=== PATIENT | female | born 1935 | race Caucasian/White ===

== ENCOUNTER 2020-04-20 18:25 | Inpatient (IN) ==
[2020-04-20 18:55] LABS: POC Blood Urea Nitrogen 32 mg/dl (8-23); POC CO2 22 mmol/L (22-30); POC Calcium, Ionized 1.21 mmol/L (1.16-1.32); POC Chloride 101 mmol/L (96-108); POC Creatinine 0.6 mg/dl (0.6-1.1); POC Glucose, Random 107 mg/dL (70-105); POC Sodium 134 mmol/L (133-145)
[2020-04-20] MEDS ORDERED: PANTOPRAZOLE 40 MG VIAL IV ONE (18:55)
[2020-04-20] MEDS ORDERED: 0.9 % SODIUM CHLORIDE 1,000 ML IV ONE (18:55)
[2020-04-20] MEDS ORDERED: 0.9 % SODIUM CHLORIDE 250 ML IV SCH ×2 (19:15→22:01)
--- NOTE | 2020-04-20 19:21 | Emergency Department Note ---
HPI General Chief complaint: Bleeding Other Stated complaint: Black stools Time Seen by Provider: 04/20/20 18:28 Mode of arrival: wheelchair Limitations: no limitations History of Present Illness HPI Narrative: Narrative: Patient is an 84-year-old female that comes into the emergency department today with complaint of melena that began 2 days ago. Patient reports that she has had black stools on Saturday, on Saturday she felt tired and had another black stool. She reports today she had 2 black stools. She was started on Plavix after a CVA February 10, 2020. Patient reports that she was instructed to monitor for black stools as well as bruising. She has noticed some occasional bruises on her lower extremities, but the black stools and weakness and feeling tired is why she decided to come to the emergency department today. She reports that she called her primary care provider, and was instructed to come to the emergency department. She has not had any chest pain, shortness of breath, or difficulty breathing. She has not had any cough. She denies any fevers or chills. She has not had any diarrhea or constipation. Related Data Home Medications Medication Instructions Recorded Confirmed cholecalciferol (vitamin D3) 10 1,200 unit PO QDAY cap 03/16/15 03/16/20 mcg (400 unit) capsule aspirin 81 mg PO QDAY 04/20/20 04/20/20 Previous Rx's Medication Instructions Recorded meloxicam 15 mg tablet 15 mg PO QDAY PRN #90 tab 10/21/19 telmisartan 40 mg tablet See Rx Instructions .ROUTE 12/31/19 .COMPLEX #30 unknown measurement unit code: tablet atorvastatin 20 mg tablet 20 mg PO QDAY #30 tab 02/17/20 clopidogrel 75 mg tablet 150 mg PO QDAY 21 Days #42 tab 02/18/20 Allergies Allergy/AdvReac Type Severity Reaction Status Date / Time cephalexin Allergy Severe wheezing Verified 04/20/20 21:13 and throat swelling on third day alendronate sodium Allergy Unknown Unknown Verified 04/20/20 21:13 [From Fosamax] cefdinir [From Omnicef] Allergy Unknown Diarrhea Verified 04/20/20 21:13 ciprofloxacin [From Cipro] Allergy Unknown Headache Verified 04/20/20 21:13 hydroxyzine [From Atarax] Allergy Unknown Unknown Verified 04/20/20 21:13 Raloxifene [From Evista] Allergy Unknown Unknown Verified 04/20/20 21:13 risedronate sodium Allergy Unknown Gastrointestinal Verified 04/20/20 21:13 [From Actonel] Upset sulfamethoxazole Allergy Unknown Unknown Verified 04/20/20 21:13 [From Septra] tolterodine [From Detrol] Allergy Unknown Headache Verified 04/20/20 21:13 tramadol [From Ultram] Allergy Unknown Dizziness Verified 04/20/20 21:13 trimethoprim [From Septra] Allergy Unknown Unknown Verified 04/20/20 21:13 hydrocodone-acetaminophen Allergy Unknown Diarrhea Uncoded 03/16/20 10:03 Niacin Allergy Unknown Flushing Uncoded 03/16/20 10:03 Review of Systems ROS ROS Narrative: Narrative: All systems ED: reviewed and negative except as stated. 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 current use of immunosuppressive drug (Chronic) Influenza (Acute) Back Pain (Chronic) History of colonoscopy (Chronic) History of esophagogastroduodenoscopy (Chronic 09/25/12) History of carpal tunnel release (Chronic) Status post arthroscopic surgery of right knee (Chronic) Status post arthroscopic surgery of left knee (Chronic) History of oophorectomy (Chronic) Vertigo (Chronic) History of tobacco use (Chronic) Seborrheic keratosis (Chronic) Systemic lupus erythematosus (Acute) Urinary incontinence (Chronic) Hypertension, essential (Chronic) Hyperlipidemia (Chronic) Hormone replacement therapy (Chronic) Osteoporosis (Chronic) Hematuria, microscopic (Chronic) Hearing loss (Chronic) Headache (Chronic) Gastritis (Chronic) Degenerative joint disease (Acute) Cervical compression fracture (Chronic) Colon polyps (Chronic) Drug use (Chronic 11/03/13) Arteritis (Chronic) Anemia (Chronic) Medical History (Updated 04/20/20 @ 20:57 by DESIREE Spear) Anemia (Chronic) Past H/O mild anemia with lab workup 2009, probably related to Plaquenil. No history for bleeding and she does not donate blood. Arteritis (Chronic) 03/2011 extensive evaluation for questionable temporal arteritis including biopsy through Dr. Weems. Also see hearing loss and headache below. Back Pain (Chronic) Cervical compression fracture (Chronic) 1995*Past H/O, 1994, of T3 compression fracture. Chest pain (Acute) Colon polyps (Chronic) 09/09/12 Colonoscopy--Dr. Elena--rectal hyperplastic polyp. 5-year sequence. 11/06/07 Colonoscopy--rectal hyperplastic polyp. Degenerative joint disease (Acute) Drug use (Chronic 11/03/13) chronic medication use *Patient on plaquenil Encounter for long-term (current) use of NSAIDs (Acute) Gastritis (Chronic) 09/25/12 EGD--Dr. Elena-- stomach biopsy X2 showing features of hyperplastic polyps, negative for helicobacter-type organisms; chronic gastritis. Headache (Chronic) H/O tension/migraine-like headaches. Head MRI 03/14/11 revealing some atrophy and possibly some inflammation in the left sphenoid. Rheumatology review 02/[address] Hatch in [place] with concerns of temporal arteritis. 03/2011 extensive evaluation for questionable temporal arteritis including biopsy through Dr. Weems. Stable on prn analgesics. Hearing loss (Chronic) 03/2011 extensive evaluation for questionable temporal arteritis including biopsy through Dr. Weems. Review with Dr. Weems 11/2011 for hearing loss. 03/2012--ENT review, Dr. Licona in [place] for dizziness and probable true vertigo. Carotid doppler through Dr. Licona revealed some plaquing but no obstruction; non-pathologic cervical nodes. New hearing aids 04/2012 Hematuria, microscopic (Chronic) H/O microhematuria, urinary incontinence, mild pelvic prolapse, also bilate ral oophorectomy for cysts 1955. CT evaluation 2008. Review with Shaquille Yang, November 2010--felt not to be a surgical candidate. History of tobacco use (Chronic) Distant ex-smoker, stopping 1966, not requiring routine screening. Hormone replacement therapy (Chronic) 1955 Bilateral oophorectomy for cysts. On oral and topical estrogen and is well aware of potential side effects. Hyperlipidemia (Chronic) H/O hyperlipidemia with multiple medicine intolerances, including Niacin and Zetia--treated primarly with diet. Hypertension, essential (Chronic) H/O mild hypertension, stable on Labetalol. Negative cardiovascular history. Influenza (Acute) [facility] current use of immunosuppressive drug (Chronic) Osteoporosis (Chronic) H/O osteoporosis/osteopenia with stable Vitamin D level 10/26/2009 of 40.7 and primary intervention being her estrogen. Bone Density 11/07/2010 with Spine T- score -2.7; Hip T-score -1.5. Seborrheic keratosis (Chronic) Derm follow up through D[facility]. Systemic lupus erythematosus (Acute) Urinary incontinence (Chronic) H/O urinary incontinence, mild pelvic prolapse and past H/O microhematuria, also bilateral oophorectomy for cysts 1955. CT evaluation 2008. Review with Deshaun Yangkane, November 2010--felt not to be a surgical candidate. Vertigo (Chronic) 03/2012--ENT review, Dr. Licona in [place] for dizziness and probable true vertigo. Carotid doppler through Dr. Licona revealed some plaquing but no obstruction; non-pathologic cervical nodes. Referred through Dr. Forbes to [facility] for vertigo physical therapy treatments. Surgical History History of carpal tunnel release (Chronic) 1995 Left carpal tunnel release. History of colonoscopy (Chronic) 09/09/12 Colonoscopy--Dr. Elena--rectal hyperplastic polyp. 5-year sequence. 11/06/07 Colonoscopy--rectal hyperplastic polyp. History of esophagogastroduodenoscopy (Chronic 09/25/12) 09/25/12 EGD--Dr. Elena-- stomach biopsy X2 showing features of hyperplastic polyps, negative for helicobacter-type organisms; chronic gastritis. History of oophorectomy (Chronic) 1955 Bilateral oophorectomy for cysts. On oral and topical estrogen and is well aware of potential side effects. Status post arthroscopic surgery of left knee (Chronic) 2010, 2004, 1979's* 06/2011 Left knee scope; 2004 left knee scope; left knee scope. Status post arthroscopic surgery of right knee (Chronic) 2001 Right knee arthroscopy--Dr. Mora. Family History Sister Idiopathic pulmonary fibrosis non smoker Mother Malignant neoplasm of lung smoker Social History Smoking Status: Former smoker Alcohol Intake Frequency: does not drink Substance Use: does not use Exam Narrative Narrative: Narrative: General Limitations: no limitations General appearance: alert and in no apparent distress Eye Eye: Present normal appearance, PERRL and EOMI; Absent scleral icterus and conjunctival injection ENT ENT: Present normal oropharynx and mucous membranes dry Neck Neck: Present normal inspection and full ROM; Absent tenderness and lymphadenopathy Chest Chest: Present symmetric chest wall rise Respiratory Respiratory: Present normal lung sounds bilaterally; Absent respiratory distress, wheezes, stridor, accessory muscle use and prolonged expiratory phase Cardiovascular Cardiovascular: Present regular rate and normal rhythm; Absent systolic murmur and diastolic murmur Adbominal Abdominal: Present soft; Absent distention, tenderness, guarding, rebound, rigidity, organomegaly and mass Rectal Rectal: Present normal inspection, normal rectal tone, heme (+) stool and black stool; Absent fecal impaction, mass and tenderness Extremities Extremities: Present normal inspection, full ROM and other (Several small areas of ecchymosis on the posterior side of right and left leg measuring 1 cm to 2 cm in diameter.) Back Back: Present normal inspection and full ROM; Absent tenderness, CVA tenderness (R) and CVA tenderness (L) Neurological Neurological: Present alert, oriented X3, CN II-XII intact and normal gait Psychiatric Psychiatric: Present normal affect and normal mood Skin Skin: Present other (Skin is pale with pink undertones. There are several small areas of light purple ecchymosis on posterior side of right and left leg that measure 1 cm to 2 cm in diameter.) Course Reevaluation(s) Reevaluation #1: 1914 -spoke with Dr. Sky Torres, and reported to him that the guaiac stool is positive and [id number] hematocrit is 21.0. Have ordered 80 mg of Protonix IV, 1 L normal saline, 2 units packed red blood cells with a type and cross. Patient is stable vital signs at this time. Dr. Torres will consult with the patient if admitted, but will need hospitalist to admit. Remainder of labs currently pending at this time. We will plan on calling hospitalist once remainder of labs are resulted. 2052 - Spoke with Dr. Farooq at 2052 in regards to the patient. Patient has a hemoglobin of 7.1, and hematocrit of 22.0. Positive occult stool test. Patient has stable vital signs at this time and received 1 L normal saline, and 80 mg of Protonix IV. Dr. Farooq will accept the patient for hospital admission to [facility] PCU observation. Vital Signs Vital signs: Vital Signs Temperature 97.9 F 04/20/20 18:27 Pulse Rate 88 04/20/20 18:27 Respiratory Rate 14 04/20/20 18:27 Blood Pressure 115/69 04/20/20 18:27 Pulse Oximetry (%) 99 04/20/20 18:27 Temperature 97.9 F 04/20/20 18:27 Pulse Rate 81 04/20/20 21:01 Respiratory Rate 21 04/20/20 21:01 Blood Pressure 123/60 04/20/20 21:01 Pulse Oximetry (%) 100 04/20/20 21:01 [facility] MDM Narrative Medical decision making narrative: Narrative: GI bleed with anemia. Hemoglobin 7.1 and hematocrit 22.0. Patient received 1 L normal saline here in the emergency department. She has a stable blood pressure and currently 121/60 with pulse of 80. Oxygen saturation 100% on room air. Currently awaiting the packed red blood cells for transfusion and will transfuse 1 unit at this time in the emergency department if the packed red blood cells arrives before patient being admitted. Spoke with Dr. Sky Torres who will consult with the patient for scope with colonoscopy and if needed EGD. I did talk with Dr. Farooq who agreed to admit the patient to [facility] today. Patient doing well at this time and did for the GI bleed. Lab Data Result diagrams: 04/20/20 18:43 04/20/20 18:43 Labs: Lab Results 04/20/20 04/20/20 04/20/20 Range/Units 18:43 18:43 18:43 WBC 10.4 (4.50-11.00) K/mcL RBC 2.28 L (3.59-5.38) M/mcL Hgb 7.1 L (11.2-15.7) g/dL Hct 22.0 L (34.1-44.9) % POC Hct 21.0 L* (36.0-48.0) % MCV 96.5 (80.0-100.0) fL MCH 31.1 (26.0-34.0) pg MCHC 32.3 (31.0-36.0) g/dL RDW 14.0 (11.5-14.5) % Plt Count 252 (140-440) K/mcL MPV 9.0 (7.4-10.4) fL Gran % 71.0 (38.0-78.0) % Lymph % (Auto) 19.8 (15.5-49.0) % Scott % (Auto) 7.6 (1.0-12.0) % Eos % (Auto) 1.2 (0.0-7.0) % Baso % (Auto) 0.4 (0.0-2.0) % Gran # 7.40 (1.80-8.00) K/mcL Lymph # (Auto) 2.07 (1.50-4.80) K/mcL Scott # (Auto) 0.79 (0.10-0.90) K/mcL Eos # (Auto) 0.13 (0.00-0.70) K/mcL Baso # (Auto) 0.04 (0.00-0.30) K/mcL POC PT (11.9-14.5) sec PT (11.9-14.5) sec POC INR (0.9-1.2) INR (0.9-1.1) POC Sodium 134 (133-145) mmol/L Sodium 133 (133-145) mmol/L POC Potassium 4.0 (3.3-5.1) mmol/L Potassium 4.0 (3.3-5.1) mmol/L POC Chloride 101 (96-108) mmol/L Chloride 99 (96-108) mmol/L Carbon Dioxide 22 (22-30) mmol/L POC Total CO2 22 (22-30) mmol/L Anion Gap 12.0 (8-16) POC BUN 32 H (8-23) mg/dl BUN 35 H (8-23) mg/dl Creatinine 0.6 (0.6-1.1) mg/dl POC Creatinine 0.6 (0.6-1.1) mg/dl GFR Calculation 83 Glucose 109 H (70-105) mg/dL POC Glucose 107 H (70-105) mg/dL Calcium 9.1 (8.6-10.4) mg/dl POC WB Ioniz Calcium 1.21 (1.16-1.32) mmol/L Total Bilirubin 0.3 (0.0-1.0) mg/dL AST 19 (0-37) U/l ALT 15 (0-40) U/l Alkaline Phosphatase 73 (39-117) U/L Total Protein 5.9 (5.9-8.4) gm/dL Albumin 3.8 (3.2-5.2) gm/dL Globulin 2.1 L (2.2-3.7) gm/dL Albumin/Globulin Ratio 1.8 (1.0-2.3) 04/20/20 04/20/20 Range/Units 18:43 19:28 WBC (4.50-11.00) K/mcL RBC (3.59-5.38) M/mcL Hgb (11.2-15.7) g/dL Hct (34.1-44.9) % POC Hct (36.0-48.0) % MCV (80.0-100.0) fL MCH (26.0-34.0) pg MCHC (31.0-36.0) g/dL RDW (11.5-14.5) % Plt Count (140-440) K/mcL MPV (7.4-10.4) fL Gran % (38.0-78.0) % Lymph % (Auto) (15.5-49.0) % Scott % (Auto) (1.0-12.0) % Eos % (Auto) (0.0-7.0) % Baso % (Auto) (0.0-2.0) % Gran # (1.80-8.00) K/mcL Lymph # (Auto) (1.50-4.80) K/mcL Scott # (Auto) (0.10-0.90) K/mcL Eos # (Auto) (0.00-0.70) K/mcL Baso # (Auto) (0.00-0.30) K/mcL POC PT 12.7 (11.9-14.5) sec PT 14.4 (11.9-14.5) sec POC INR 1.1 (0.9-1.2) INR 1.1 (0.9-1.1) POC Sodium (133-145) mmol/L Sodium (133-145) mmol/L POC Potassium (3.3-5.1) mmol/L Potassium (3.3-5.1) mmol/L POC Chloride (96-108) mmol/L Chloride (96-108) mmol/L Carbon Dioxide (22-30) mmol/L POC Total CO2 (22-30) mmol/L Anion Gap (8-16) POC BUN (8-23) mg/dl BUN (8-23) mg/dl Creatinine (0.6-1.1) mg/dl POC Creatinine (0.6-1.1) mg/dl GFR Calculation Glucose (70-105) mg/dL POC Glucose (70-105) mg/dL Calcium (8.6-10.4) mg/dl POC WB Ioniz Calcium (1.16-1.32) mmol/L Total Bilirubin (0.0-1.0) mg/dL AST (0-37) U/l ALT (0-40) U/l Alkaline Phosphatase (39-117) U/L Total Protein (5.9-8.4) gm/dL Albumin (3.2-5.2) gm/dL Globulin (2.2-3.7) gm/dL Albumin/Globulin Ratio (1.0-2.3) Discharge Plan Patient/Caregiver Discharge Instructions Pt seen by CRYPTANALYST/PA only: No Clinical Impression: Acute GI bleeding Patient Disposition: Xfer As Outpt/Obs ([facility] Condition: Fair Discharge Date/Time: 04/20/20 21:49
[2020-04-20 19:42] LABS: Basophils # (Auto) 0.04 K/mcL (0.00-0.30); Basophils % (Auto) 0.4 % (0.0-2.0); Eosinophils # (Auto) 0.13 K/mcL (0.00-0.70); Eosinophils % (Auto) 1.2 % (0.0-7.0); Hemoglobin 7.1 g/dL (11.2-15.7); Lymphocytes # (Auto) 2.07 K/mcL (1.50-4.80); Lymphocytes % (Auto) 19.8 % (15.5-49.0); Mean Cell Volume 96.5 fL (80.0-100.0); Mean Corpuscular HGB Conc 32.3 g/dL (31.0-36.0); Monocytes # (Auto) 0.79 K/mcL (0.10-0.90); Monocytes % (Auto) 7.6 % (1.0-12.0); Platelet Count 252 K/mcL (140-440); RBC 2.28 M/mcL (3.59-5.38); WBC 10.4 K/mcL (4.50-11.00)
[2020-04-20 19:57] LABS: INR 1.1 (0.9-1.1); Prothrombin Time 14.4 sec (11.9-14.5)
[2020-04-20 20:00] LABS: ALT/SGPT 15 U/l (0-40); AST/SGOT 19 U/l (0-37); Albumin 3.8 gm/dL (3.2-5.2); Albumin/Globulin Ratio 1.8 (1.0-2.3); Alkaline Phosphatase 73 U/L (39-117); Bilirubin,Total 0.3 mg/dL (0.0-1.0); Blood Urea Nitrogen 35 mg/dl (8-23); Calcium 9.1 mg/dl (8.6-10.4); Carbon Dioxide 22 mmol/L (22-30); Chloride 99 mmol/L (96-108); Globulin 2.1 gm/dL (2.2-3.7); Glomerular Filtration Rate 83; Glucose 109 mg/dL (70-105)
[2020-04-20 20:34] LABS: POC INR 1.1 (0.9-1.2); POC Pro Time 12.7 sec (11.9-14.5)
--- NOTE | 2020-04-20 20:54 | Internal Med History&Physical ---
HPI History of Present Illness Patient information: Note initiated : 04/20/20 at 8:50 pm Service Date, if different from initiated Date: [] Patient: Kinjal Roque a 84 y/o F admitted on for Black stools. Chief Complaint: Melena History of present illness: Ms. Roque is a 84 year old F with a history of hypertension/recent CVA on aspirin Plavix who presents to the ER with 3-day onset of black tarry stools that started on Saturday. Patient has been on aspirin Plavix since February 09 following a CVA. She denies abdominal discomfort/bloody emesis however endorses to daily NSAID intake over the last 3 weeks after recommendations from skilled helper. She denies history of alcoholism. Initial work-up in the ER was consistent with blood loss anemia with hemoglobin 7.1. 2 blood transfusion was ordered after 80 mg of Protonix was administered. Surgery was consulted and requested hospital service to admit the patient for management of GI bleed. At the time of my evaluation patient is accompanied with her daughter Denisse. She is able to answer most of the questions. She has associated lightheadedness but denies chest pain, diaphoresis, palpitation or shortness of breath. She does feel fatigued. She has very minimal left-sided deficits from recent CVA. She lives alone, her daughter lives a mile from her. She denies fever, double vision, thunderclap headache. Review of systems 10 point review system was performed and is negative except for ones cussed above PFSH PFSH All Active Problems (Updated 04/20/20 @ 20:57 by DESIREE Spear) Stroke (Acute) Brain TIA (Acute) Acute GI bleeding (Acute) Encounter for long-term (current) use of NSAIDs (Acute) Actinic keratosis (Acute) Chest pain (Acute) Urinary tract infection (Acute) Vaginal pain (Acute) Situational anxiety (Acute) Encounter for Health Maintenance Examination in Adult (Chronic) senior living current use of immunosuppressive drug (Chronic) Influenza (Acute) Back Pain (Chronic) History of colonoscopy (Chronic) History of esophagogastroduodenoscopy (Chronic 09/25/12) History of carpal tunnel release (Chronic) Status post arthroscopic surgery of right knee (Chronic) Status post arthroscopic surgery of left knee (Chronic) History of oophorectomy (Chronic) Vertigo (Chronic) History of tobacco use (Chronic) Seborrheic keratosis (Chronic) Systemic lupus erythematosus (Acute) Urinary incontinence (Chronic) Hypertension, essential (Chronic) Hyperlipidemia (Chronic) Hormone replacement therapy (Chronic) Osteoporosis (Chronic) Hematuria, microscopic (Chronic) Hearing loss (Chronic) Headache (Chronic) Gastritis (Chronic) Degenerative joint disease (Acute) Cervical compression fracture (Chronic) Colon polyps (Chronic) Drug use (Chronic 11/03/13) Arteritis (Chronic) Anemia (Chronic) Medical History (Updated 04/20/20 @ 20:57 by DESIREE Spear) Anemia (Chronic) Past H/O mild anemia with lab workup 2008, probably related to Plaquenil. No history for bleeding and she does not donate blood. Arteritis (Chronic) 03/2011 extensive evaluation for questionable temporal arteritis including biopsy through Dr. Weems. Also see hearing loss and headache below. Back Pain (Chronic) Cervical compression fracture (Chronic) 1995*Past H/O, 1994, of T3 compression fracture. Chest pain (Acute) Colon polyps (Chronic) 09/09/12 Colonoscopy--Dr. Elena--rectal hyperplastic polyp. 5-year sequence. 11/06/07 Colonoscopy--rectal hyperplastic polyp. Degenerative joint disease (Acute) Drug use (Chronic 11/03/13) chronic medication use *Patient on plaquenil Encounter for long-term (current) use of NSAIDs (Acute) Gastritis (Chronic) 09/25/12 EGD--Dr. Elena-- stomach biopsy X2 showing features of hyperplastic polyps, negative for helicobacter-type organisms; chronic gastritis. Headache (Chronic) H/O tension/migraine-like headaches. Head MRI 03/14/11 revealing some atrophy and possibly some inflammation in the left sphenoid. Rheumatology review 04/01/[address] Hatch in [place] with concerns of temporal arteritis. 03/2011 extensive evaluation for questionable temporal arteritis including biopsy through Dr. Weems. Stable on prn analgesics. Hearing loss (Chronic) 03/2011 extensive evaluation for questionable temporal arteritis including biopsy through Dr. Weems. Review with Dr. Weems 11/2011 for hearing loss. 03/2012--ENT review, Dr. Licona in [place] for dizziness and probable true vertigo. Carotid doppler through Dr. Licona revealed some plaquing but no obstruction; non-pathologic cervical nodes. New hearing aids 04/2012 Hematuria, microscopic (Chronic) H/O microhematuria, urinary incontinence, mild pelvic prolapse, also bilateral oophorectomy for cysts 1955. CT evaluation 2008. Review with Shaquille Yang, November 2010--felt not to be a surgical candidate. History of tobacco use (Chronic) Distant ex-smoker, stopping 1966, not requiring routine screening. Hormone replacement therapy (Chronic) 1955 Bilateral oophorectomy for cysts. On oral and topical estrogen and is well aware of potential side effects. Hyperlipidemia (Chronic) H/O hyperlipidemia with multiple medicine intolerances, including Niacin and Zetia--treated primarly with diet. Hypertension, essential (Chronic) H/O mild hypertension, stable on Labetalol. Negative cardiovascular history. Influenza (Acute) senior living current use of immunosuppressive drug (Chronic) Osteoporosis (Chronic) H/O osteoporosis/osteopenia with stable Vitamin D level 10/26/2009 of 40.7 and primary intervention being her estrogen. Bone Density 11/07/2010 with Spine T-score -2.7; Hip T-score -1.5. Seborrheic keratosis (Chronic) Derm follow up through [facility]. Systemic lupus erythematosus (Acute) Urinary incontinence (Chronic) H/O urinary incontinence, mild pelvic prolapse and past H/O microhematuria, also bilateral oophorectomy for cysts 1955. CT evaluation 2008. Review with Shaquille Yang, November 2010--felt not to be a surgical candidate. Vertigo (Chronic) 03/2012--ENT review, Dr. Licona in [place] for dizziness and probable true vertigo. Carotid doppler through Dr. Licona revealed some plaquing but no obstruction; non-pathologic cervical nodes. Referred through Dr. Forbes to [facility] for vertigo physical therapy treatments. Surgical History History of carpal tunnel release (Chronic) 1995 Left carpal tunnel release. History of colonoscopy (Chronic) 09/09/12 Colonoscopy--Dr. Elena--rectal hyperplastic polyp. 5-year sequence. 11/06/07 Colonoscopy--rectal hyperplastic polyp. History of esophagogastroduodenoscopy (Chronic 09/25/12) 09/25/12 EGD--Dr. Elena-- stomach biopsy X2 showing features of hyperplastic polyps, negative for helicobacter-type organisms; chronic gastritis. History of oophorectomy (Chronic) 1955 Bilateral oophorectomy for cysts. On oral and topical estrogen and is well aware of potential side effects. Status post arthroscopic surgery of left knee (Chronic) 2010, 2004, s* 06/2011 Left knee scope; 2004 left knee scope; left knee scope. Status post arthroscopic surgery of right knee (Chronic) 2001 Right knee arthroscopy--Dr. Mora. 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 other: has 2 daughters- adopted from [facility] smoking status: Former smoker alcohol intake frequency: does not drink substance use type: does not use MEDS/ALLERGIES Home Medications and Allergies Home Medications Medication Instructions Recorded Confirmed Type cholecalciferol (vitamin D3) 10 1,200 unit PO QDAY cap 03/16/15 04/20/20 History mcg (400 unit) capsule meloxicam 15 mg tablet 15 mg PO QDAY PRN #90 tab 10/21/19 04/20/20 Rx telmisartan 40 mg tablet See Rx Instructions .ROUTE 12/31/19 04/20/20 Rx .COMPLEX #30 unknown measurement unit code: tablet atorvastatin 20 mg tablet 20 mg PO QDAY #30 tab 02/17/20 04/20/20 Rx clopidogrel 75 mg tablet 150 mg PO QDAY 21 Days #42 tab 02/18/20 04/20/20 Rx aspirin 81 mg PO QDAY 04/20/20 04/20/20 History Allergies Allergy/AdvReac Type Severity Reaction Status Date / Time cephalexin Allergy Severe wheezing Verified 04/20/20 21:13 and throat swelling on third day alendronate sodium Allergy Unknown Unknown Verified 04/20/20 21:13 [From Fosamax] cefdinir [From Omnicef] Allergy Unknown Diarrhea Verified 04/20/20 21:13 ciprofloxacin [From Cipro] Allergy Unknown Headache Verified 04/20/20 21:13 hydroxyzine [From Atarax] Allergy Unknown Unknown Verified 04/20/20 21:13 Raloxifene [From Evista] Allergy Unknown Unknown Verified 04/20/20 21:13 risedronate sodium Allergy Unknown Gastrointestinal Verified 04/20/20 21:13 [From Actonel] Upset sulfamethoxazole Allergy Unknown Unknown Verified 04/20/20 21:13 [From Septra] tolterodine [From Detrol] Allergy Unknown Headache Verified 04/20/20 21:13 tramadol [From Ultram] Allergy Unknown Dizziness Verified 04/20/20 21:13 trimethoprim [From Septra] Allergy Unknown Unknown Verified 04/20/20 21:13 hydrocodone-acetaminophen Allergy Unknown Diarrhea Uncoded 03/16/20 10:03 Niacin Allergy Unknown Flushing Uncoded 03/16/20 10:03 EXAM Constitutional Vitals: Temp Pulse Resp BP Pulse Ox 97.9 F 82 22 123/61 100 04/20/20 18:27 04/20/20 20:16 04/20/20 20:16 04/20/20 20:16 04/20/20 20:16 Head normocephalic Oral cavity moist No ear nose discharge Eye movement symmetrical, Neck supple no lymphadenopathy S1-S2 regular Nonlabored breathing Nondistended nontender abdomen Lower extremity no cyanosis clubbing or joint swelling Skin pallor noted, no suspicious lesion Psych anxious but alert cooperative Neuro normal higher function DATA Data Completed and Pending Labs: Labs from last 24 hours 04/20/20 04/20/20 04/20/20 19:28 18:43 18:43 WBC RBC Hgb Hct POC Hct MCV MCH MCHC RDW Plt Count MPV Gran % Lymph % (Auto) [place] % (Auto) Eos % (Auto) Baso % (Auto) Gran # Lymph # (Auto) [place] # (Auto) Eos # (Auto) Baso # (Auto) POC PT 12.7 PT 14.4 POC INR 1.1 INR 1.1 POC Sodium Sodium 133 POC Potassium Potassium 4.0 POC Chloride Chloride 99 Carbon Dioxide 22 POC Total CO2 Anion Gap 12.0 POC BUN BUN 35 H Creatinine 0.6 POC Creatinine GFR Calculation 83 Glucose 109 H POC Glucose Calcium 9.1 POC WB Ioniz Calcium Total Bilirubin 0.3 AST 19 ALT 15 Alkaline Phosphatase 73 Total Protein 5.9 Albumin 3.8 Globulin 2.1 L Albumin/Globulin Ratio 1.8 04/20/20 04/20/20 18:43 18:43 WBC 10.4 RBC 2.28 L Hgb 7.1 L Hct 22.0 L POC Hct 21.0 L* MCV 96.5 MCH 31.1 MCHC 32.3 RDW 14.0 Plt Count 252 MPV 9.0 Gran % 71.0 Lymph % (Auto) 19.8 [place] % (Auto) 7.6 Eos % (Auto) 1.2 Baso % (Auto) 0.4 Gran # 7.40 Lymph # (Auto) 2.07 [place] # (Auto) 0.79 Eos # (Auto) 0.13 Baso # (Auto) 0.04 POC PT PT POC INR INR POC Sodium 134 Sodium POC Potassium 4.0 Potassium POC Chloride 101 Chloride Carbon Dioxide POC Total CO2 22 Anion Gap POC BUN 32 H BUN Creatinine POC Creatinine 0.6 GFR Calculation Glucose POC Glucose 107 H Calcium POC WB Ioniz Calcium 1.21 Total Bilirubin AST ALT Alkaline Phosphatase Total Protein Albumin Globulin Albumin/Globulin Ratio A/P Narrative A/P Narrative: * UGI Bleed likely secondary to NSAID gastropathy/dual antiplatelet. Admit PCU obs, surgery consult, start Q4 H&H, 2 U PRBC stat transfusion and as needed transfusions * H/o CVA - Hold plavix/ASA for 48 hours, Continue Statin. * HTN-hold antihypertensives * Prophylaxis SCDs Plan * Observation admission * 4 hourly hemoglobin checks * 2 units PRBC transfusion * Hold aspirin Plavix * Clear liquid diet Time Spent With Patient Time: Total time spent is greater than 50% in coordination of care (as documented) at patient's floor/unit and/or counseling patient: QUALITY Stroke Symptom Onset Unknown: No
[2020-04-20] MEDS ORDERED: BISACODYL 10 MG SUPP.RECT PR PRN (22:01)
[2020-04-20] MEDS ORDERED: POLYETHYLENE GLYCOL 3350 17 GM PACKET PO PRN (22:01)
[2020-04-20] MEDS ORDERED: ACETAMINOPHEN 650 MG/65 ML BOTTLE IV PRN (22:01)
[2020-04-20] MEDS ORDERED: MELATONIN 3 MG TABLET PO PRN (22:01)
[2020-04-20] MEDS ORDERED: ACETAMINOPHEN 325 MG TABLET PO PRN (22:01)
[2020-04-20] MEDS ORDERED: ONDANSETRON 4 MG ODT TABLET SL PRN (22:01)
[2020-04-20] MEDS ORDERED: ONDANSETRON 4 MG/2 ML VIAL IV PRN (22:01)
[2020-04-20] MEDS ORDERED: MAGNESIUM SULFATE 2 GM/50 ML BAG IV PRN (22:01)
[2020-04-20] MEDS ORDERED: POTASSIUM CHLORIDE 20 MEQ PACKET PO PRN (22:01)
[2020-04-20] MEDS: 0.9 % SODIUM CHLORIDE 10 ML SYRINGE IV SCH (23:35)
[2020-04-20] MEDS: DOCUSATE SODIUM 100 MG CAPSULE PO SCH (23:35)
[2020-04-20] MEDS: SENNOSIDES/DOCUSATE SODIUM 1 TAB TABLET PO SCH (23:35)
[2020-04-21] MEDS: 0.9 % SODIUM CHLORIDE 1,000 ML IV SCH ×2 (03:26→19:41)
[2020-04-21] MEDS: 0.9 % SODIUM CHLORIDE 10 ML SYRINGE IV SCH ×3 (04:36→20:13)
[2020-04-21 05:11] LABS: Hematocrit 25.7 % (34.1-44.9); Hemoglobin 8.3 g/dL (11.2-15.7); Mean Cell Volume 95.2 fL (80.0-100.0); Mean Corpuscular HGB Conc 32.3 g/dL (31.0-36.0); Mean Platelet Volume 8.7 fL (7.4-10.4); Platelet Count 158 K/mcL (140-440); Red Cell Distribution Width 16.7 % (11.5-14.5); WBC 6.3 K/mcL (4.50-11.00)
[2020-04-21 05:51] LABS: ALT/SGPT 12 U/l (0-40); AST/SGOT 16 U/l (0-37); Albumin 3.2 gm/dL (3.2-5.2); Albumin/Globulin Ratio 1.9 (1.0-2.3); Alkaline Phosphatase 59 U/L (39-117); Bilirubin,Direct < 0.2 mg/dL (0.0-0.3); Bilirubin,Total 0.9 mg/dL (0.0-1.0); Calcium 8.2 mg/dl (8.6-10.4); Carbon Dioxide 22 mmol/L (22-30); Chloride 106 mmol/L (96-108); Globulin 1.7 gm/dL (2.2-3.7); Glomerular Filtration Rate 88; Glucose 98 mg/dL (70-105); Lactate Dehydrogenase 150 U/L (94-250); Phosphorous 4.1 mg/dL (2.7-4.5); Triglycerides 109 mg/dl (<150)
[2020-04-21 05:52] LABS: Blood Urea Nitrogen 23 mg/dl (8-23)
[2020-04-21 07:48] LABS: Anisocytosis 1+ (NONE SEEN); Band Neutrophils % 4 % (0-10); Basophils % (Manual) 1 % (0-2); Eosinophils % (Manual) 3 % (0-7); Lymphocytes % 26 % (15-49); Macrocytosis FEW (NONE SEEN); Monocytes % (Manual) 6 % (1-12); Ovalocytes OCC (NONE SEEN); Platelet Estimate NORMAL (NORMAL); RBC Morphology ABNORM (NORMAL); Segmented Neutrophils % 60 % (38-78)
[2020-04-21] MEDS: PANTOPRAZOLE 40 MG VIAL IV SCH ×2 (08:07→19:40)
[2020-04-21] MEDS ORDERED: 0.9 % SODIUM CHLORIDE 250 ML IV SCH (09:30)
[2020-04-21] MEDS: MULTIVIT,THER IRON,CA,FA & MIN 1 TABLET PO SCH (09:45)
[2020-04-21] MEDS: DOCUSATE SODIUM 100 MG CAPSULE PO SCH ×2 (09:45→20:12)
--- NOTE | 2020-04-21 10:21 | Internal Med Progress Note ---
SUBJECTIVE Subjective Patient information: Note initiated : 04/21/20 at 10:18 am Service Date, if different from initiated Date: [] Patient: Kinjal Roque 84 y/o F admitted on 04/20/20 for Black stools. Chief Complaint: Ms. Roque is a 84 year old F with a history of hypertension/recent CVA on aspirin Plavix who presents to the ER with 3-day onset of black tarry stools that started on Saturday. Patient has been on aspirin Plavix since February 09 following a CVA. She denies abdominal discomfort/bloody emesis however endorses to daily NSAID intake over the last 3 weeks after recommendations from script editor. She denies history of alcoholism. Initial work-up in the ER was consistent with blood loss anemia with hemoglobin 7.1. 2 blood transfusion was ordered after 80 mg of Protonix was administered. Surgery was consulted and requested hospital service to admit the patient for management of GI bleed. At the time of my evaluation patient is accompanied with her daughter Denisse. She is able to answer most of the questions. She has associated lightheadedness but denies chest pain, diaphoresis, palpitation or shortness of breath. She does feel fatigued. She has very minimal left-sided deficits from recent CVA. She lives alone, her daughter lives a mile from her. She denies fever, double vision, thunderclap headache. 04/21-patient doing well. Hemoglobin down to 8.4. No further bloody bowels. Aspirin Plavix held. Will undergo upper endoscopy in 24 hours. Currently on clear liquid diet. Continue PPI. Denies lightheadedness dizziness chest pain or shortness of breath. Constitutional Vitals: Vital Signs Temp Pulse Resp BP Pulse Ox 98.2 F 70 15 136/70 100 04/21/20 06:12 04/21/20 06:12 04/21/20 06:13 04/21/20 06:12 04/21/20 06:12 Period Temp Pulse Resp BP Sys/Bliss Pulse Ox Last 24 Hr 97.5 F-98.7 F 63-89 12-27 115-160/56-124 95-100 Intake and Output 04/20/20 04/21/20 04/21/20 21:59 05:59 13:59 Intake Total 1000 650 Output Total 200 50 Balance 1000 450 -50 Weight 51.936 kg improved pallor Nonlabored breathing No anxiety Intake & Output: Intake & Output 04/20/20 04/21/20 04/21/20 21:59 05:59 13:59 Intake Total 1000 650 Output Total 200 50 Balance 1000 450 -50 Weight 51.936 kg Intake: IV 1000 Sodium Chloride 0.9% 1,000 ml @ 1000 Wide Open IV BOLUS ONE Rx#: [id number] Oral 0 Blood Product 650 Output: Void Amount 200 50 OBJ DATA Labs CBC & Chem 7: 04/21/20 07:56 04/21/20 04:00 Labs: Abnormal Lab Results 04/21/20 04/21/20 04/21/20 07:56 04:00 04:00 RBC 2.70 L Hgb 8.4 L 8.3 L Hct 25.7 L POC Hct RDW 16.7 H RBC Morphology Abnorm A Anisocytosis 1+ A Macrocytosis Few A Ovalocytes Occ A POC BUN BUN Creatinine 0.5 L Glucose POC Glucose Calcium 8.2 L Total Protein 4.9 L Globulin 1.7 L 04/21/20 04/20/20 04/20/20 00:10 18:43 18:43 RBC 2.28 L Hgb 6.8 L* 7.1 L Hct 22.0 L POC Hct RDW RBC Morphology Anisocytosis Macrocytosis Ovalocytes POC BUN BUN 35 H Creatinine Glucose 109 H POC Glucose Calcium Total Protein Globulin 2.1 L 04/20/20 18:43 RBC Hgb Hct POC Hct 21.0 L* RDW RBC Morphology Anisocytosis Macrocytosis Ovalocytes POC BUN 32 H BUN Creatinine Glucose POC Glucose 107 H Calcium Total Protein Globulin Meds: Medications Acetaminophen (Tylenol) 650 mg PO Q4-6HP PRN; Protocol PRN Reason: Per Pain Protocol/Fever > 101 Bisacodyl (Dulcolax) 10 mg OK Q2-3DAYS PRN PRN Reason: Constipation Docusate Sodium (Colace) 100 mg PO BID [facility] Last Admin: 04/21/20 09:45 Dose: Not Given Documented by: Sodium Chloride (Sodium Chloride 0.9%) 250 mls @ 20 mls/hr IV .[id number] [facility] Stop: 04/21/20 10:30 Last Admin: 04/20/20 23:39 Dose: 20 mls/hr Documented by: Sodium Chloride (Sodium Chloride 0.9%) 1,000 mls @ 50 mls/hr IV .Q20H [facility] Stop: 04/23/20 10:00 Last Admin: 04/21/20 03:26 Dose: 50 mls/hr Documented by: Acetaminophen (Ofirmev) 650 mg in 65 mls @ 130 mls/hr IV Q6HP PRN; Protocol PRN Reason: Per Pain Protocol/Fever > 101 Magnesium Sulfate (Magnesium Sulfate) 2 gm in 50 mls @ 50 mls/hr IV UD PRN PRN Reason: MG = or < 1.7 Sodium Chloride (Sodium Chloride 0.9%) 250 mls @ 20 mls/hr IV .[id number] [facility] Stop: 04/21/20 21:59 Iron Carb/Multivit/[place]/Folic Acid (Multivitamin W/Minerals) 1 tab PO DAILY [facility] Last Admin: 04/21/20 09:45 Dose: 1 tab Documented by: Melatonin (Melatonin 3mg Tablet) 3 mg PO HSP PRN PRN Reason: Insomnia Ondansetron HCl (Zofran Odt) 4 mg SL Q4-6HP PRN; Protocol PRN Reason: Nausea And Vomiting Ondansetron HCl (Zofran) 4 mg IV Q4-6HP PRN; Protocol PRN Reason: Nausea And Vomiting Pantoprazole Sodium (Protonix) 40 mg IV BIDAC [facility] Last Admin: 04/21/20 08:07 Dose: 40 mg Documented by: Polyethylene Glycol (Miralax) 17 gm PO DAILYP PRN PRN Reason: Constipation Potassium Chloride (Klor-Con) 40 meq PO DAILYP PRN PRN Reason: K+ < 3.5 Senna/Docusate Sodium (Senna Plus Tablet) 1 tab PO HS [facility] Last Admin: 04/20/20 23:35 Dose: Not Given Documented by: Sodium Chloride (Saline Flush) 10 ml IV Q8 [facility] Last Admin: 04/21/20 04:36 Dose: Not Given Documented by: A/P Narrative A/P Narrative: * UGI Bleed likely secondary to NSAID gastropathy/dual antiplatelet. Admit PCU obs, surgery consult, start Q4 H&H, 2 U PRBC stat transfusion and as needed transfusions * Acute blood loss anemia-status post units blood transfusion 04/20. Hemoglobin 8.4. Additional 2 units of blood transfusion today. * H/o CVA - Held plavix/ASA for additional 24 hours, Continue Statin. * HTN-restart antihypertensives once systolics over 140 * Prophylaxis SCDs Plan * Continue 4 hourly hemoglobin checks * Additional 2 units PRBC transfusion * Hold aspirin Plavix * Clear liquid diet * Upper endoscopy in a.m. Time Spent With Patient Time: Total time spent is greater than 50% in coordination of care (as documented) at patient's floor/unit and/or counseling patient: Total time spent with greater than 50% in coordination of care (as documented) at patient's floor/unit and/or counseling patient:: Greater than 35 minutes QUALITY Stroke Symptom Onset Unknown: No
--- NOTE | 2020-04-21 16:01 | General Surgery Consult Note ---
HPI Data of Consult Consult date: 04/21/20 Requesting physician: Elijah Ozuna Primary Care Provider: Lalo Ramirez M.D., F.A.A.F.P. Consult Narrative Chief complaint: black stools and weakness Reason for consult: melena with anemia History of present illness: 84-year-old female who presents with a 2 day history of black stools with associated fatigue and epigastric pain. She also had heartburn. Patient has been on aspirin Plavix and meloxicam after stroke. She has taken the meloxicam daily for the past 4 weeks. She has not had bright red rectal bleeding. Her last black stool was yesterday. Her hemoglobin on presentation was 7.1 and dropped to 6.8. She was up to 8.3 after 2 units of packed red cells and she is presently being transfused. There is no evidence of active bleeding at this time. Patient is counseled for upper endoscopy tomorrow cc:: CC: Elijah Ozuna Review of Systems All systems: reviewed and no additional remarkable complaints except as stated (joint pain in hands and knees and ankles; lower extremity edema; fatigue; history of epigastric pain;) Respiratory Respiratory: Present dyspnea Gastrointestinal Gastrointestinal: Present abdominal pain, belching, change in bowel habits, heartburn and melena Genitourinary Genitourinary: Present post void dribbling and urinary frequency Musculoskeletal Musculoskeletal: Present myalgias, neck pain and stiffness Hematologic/Lymphatic Hematologic/Lymphatic: Absent easy bleeding, easy bruising and lymphadenopathy PFSH PFSH All Active Problems (Updated 04/21/20 @ 16:01 by Humble Torres MD) Acute blood loss anemia (Acute) Stroke (Acute) Brain TIA (Acute) Acute GI bleeding (Acute) Encounter for long-term (current) use of NSAIDs (Acute) Actinic keratosis (Acute) Chest pain (Acute) Urinary tract infection (Acute) Vaginal pain (Acute) Situational anxiety (Acute) Encounter for Health Maintenance Examination in Adult (Chronic) 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) Influenza (Acute) Back Pain (Chronic) History of colonoscopy (Chronic) History of esophagogastroduodenoscopy (Chronic 09/25/12) History of carpal tunnel release (Chronic) Status post arthroscopic surgery of right knee (Chronic) Status post arthroscopic surgery of left knee (Chronic) History of oophorectomy (Chronic) Vertigo (Chronic) History of tobacco use (Chronic) Seborrheic keratosis (Chronic) Systemic lupus erythematosus (Acute) Urinary incontinence (Chronic) Hypertension, essential (Chronic) Hyperlipidemia (Chronic) Hormone replacement therapy (Chronic) Osteoporosis (Chronic) Hematuria, microscopic (Chronic) Hearing loss (Chronic) Headache (Chronic) Gastritis (Chronic) Degenerative joint disease (Acute) Cervical compression fracture (Chronic) Colon polyps (Chronic) Drug use (Chronic 11/03/13) Arteritis (Chronic) Anemia (Chronic) Medical History Anemia (Chronic) Past H/O mild anemia with lab workup 2008, probably related to Plaquenil. No history for bleeding and she does not donate blood. Arteritis (Chronic) 03/2011 extensive evaluation for questionable temporal arteritis including biopsy through Dr. Weems. Also see hearing loss and headache below. Back Pain (Chronic) Cervical compression fracture (Chronic) 1995*Past H/O, 1994, of T3 compression fracture. Chest pain (Acute) Colon polyps (Chronic) 09/09/12 Colonoscopy--Dr. Elena--rectal hyperplastic polyp. 5-year sequence. 11/06/07 Colonoscopy--rectal hyperplastic polyp. Degenerative joint disease (Acute) Drug use (Chronic 11/03/13) chronic medication use *Patient on plaquenil Encounter for long-term (current) use of NSAIDs (Acute) Gastritis (Chronic) 09/25/12 EGD--Dr. Elena-- stomach biopsy X2 showing features of hyperplastic polyps, negative for helicobacter-type organisms; chronic gastritis. Headache (Chronic) H/O tension/migraine-like headaches. Head MRI 03/14/11 revealing some atrophy and possibly some inflammation in the left sphenoid. Rheumatology review 04/01/[address] Hatch in [place] with concerns of temporal arteritis. 03/2011 extensive evaluation for questionable temporal arteritis including biopsy through Dr. Weems. Stable on prn analgesics. Hearing loss (Chronic) 03/2011 extensive evaluation for questionable temporal arteritis including biopsy through Dr. Weems. Review with Dr. Weems 11/2011 for hearing loss. 03/2012--ENT review, Dr. Licona in [place] for dizziness and probable true vertigo. Carotid doppler through Dr. Licona revealed some plaquing but no obstruction; non-pathologic cervical nodes. New hearing aids 04/2012 Hematuria, microscopic (Chronic) H/O microhematuria, urinary incontinence, mild pelvic prolapse, also bilateral oophorectomy for cysts 1955. CT evaluation 2008. Review with Shaquille Yang, November 2010--felt not to be a surgical candidate. History of tobacco use (Chronic) Distant ex-smoker, stopping 1966, not requiring routine screening. Hormone replacement therapy (Chronic) 1955 Bilateral oophorectomy for cysts. On oral and topical estrogen and is well aware of potential side effects. Hyperlipidemia (Chronic) H/O hyperlipidemia with multiple medicine intolerances, including Niacin and Zetia--treated primarly with diet. Hypertension, essential (Chronic) H/O mild hypertension, stable on Labetalol. Negative cardiovascular history. Influenza (Acute) USP current use of immunosuppressive drug (Chronic) Osteoporosis (Chronic) H/O osteoporosis/osteopenia with stable Vitamin D level 10/26/2009 of 40.7 and primary intervention being her estrogen. Bone Density 11/07/2010 with Spine T- score -2.7; Hip T-score -1.5. Seborrheic keratosis (Chronic) Derm follow up through [facility]. Systemic lupus erythematosus (Acute) Urinary incontinence (Chronic) H/O urinary incontinence, mild pelvic prolapse and past H/O microhematuria, also bilateral oophorectomy for cysts 1955. CT evaluation 2008. Review with Shaquille Yang, November 2010--felt not to be a surgical candidate. Vertigo (Chronic) 03/2012--ENT review, Dr. Licona in [place] for dizziness and probable true vertigo. Carotid doppler through Dr. Licona revealed some plaquing but no obstruction; non-pathologic cervical nodes. Referred through Dr. Forbes to [facility] for vertigo physical therapy treatments. Surgical History History of carpal tunnel release (Chronic) 1995 Left carpal tunnel release. History of colonoscopy (Chronic) 09/09/12 Colonoscopy--Dr. Elena--rectal hyperplastic polyp. 5-year sequence. 11/06/07 Colonoscopy--rectal hyperplastic polyp. History of esophagogastroduodenoscopy (Chronic 09/25/12) 09/25/12 EGD--Dr. Elena-- stomach biopsy X2 showing features of hyperplastic polyps, negative for helicobacter-type organisms; chronic gastritis. History of oophorectomy (Chronic) 1955 Bilateral oophorectomy for cysts. On oral and topical estrogen and is well aware of potential side effects. Status post arthroscopic surgery of left knee (Chronic) 2010, 2004, s* 06/2011 Left knee scope; 2004 left knee scope; left knee scope. Status post arthroscopic surgery of right knee (Chronic) 2001 Right knee arthroscopy--Dr. Mora. 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 other: has 2 daughters- adopted from [facility] smoking status: Never smoker alcohol intake frequency: does not drink substance use type: does not use MEDS/ALLERGIES Home Medications and Allergies Home Medications Medication Instructions Recorded Confirmed Type cholecalciferol (vitamin D3) 10 1,200 unit PO QDAY cap 03/16/15 04/20/20 History mcg (400 unit) capsule meloxicam 15 mg tablet 15 mg PO QDAY PRN #90 tab 10/21/19 04/20/20 Rx telmisartan 40 mg tablet See Rx Instructions .ROUTE 12/31/19 04/20/20 Rx .COMPLEX #30 unknown measurement unit code: tablet atorvastatin 20 mg tablet 20 mg PO QDAY #30 tab 02/17/20 04/20/20 Rx clopidogrel 75 mg tablet 150 mg PO QDAY 21 Days #42 tab 02/18/20 04/20/20 Rx aspirin 81 mg PO QDAY 04/20/20 04/20/20 History Allergies Allergy/AdvReac Type Severity Reaction Status Date / Time cephalexin Allergy Severe wheezing Verified 04/20/20 21:13 and throat swelling on third day alendronate sodium Allergy Unknown Unknown Verified 04/20/20 21:13 [From Fosamax] cefdinir [From Omnicef] Allergy Unknown Diarrhea Verified 04/20/20 21:13 ciprofloxacin [From Cipro] Allergy Unknown Headache Verified 04/20/20 21:13 hydroxyzine [From Atarax] Allergy Unknown Unknown Verified 04/20/20 21:13 Raloxifene [From Evista] Allergy Unknown Unknown Verified 04/20/20 21:13 risedronate sodium Allergy Unknown Gastrointestinal Verified 04/20/20 21:13 [From Actonel] Upset sulfamethoxazole Allergy Unknown Unknown Verified 04/20/20 21:13 [From Septra] tolterodine [From Detrol] Allergy Unknown Headache Verified 04/20/20 21:13 tramadol [From Ultram] Allergy Unknown Dizziness Verified 04/20/20 21:13 trimethoprim [From Septra] Allergy Unknown Unknown Verified 04/20/20 21:13 hydrocodone-acetaminophen Allergy Unknown Diarrhea Uncoded 03/16/20 10:03 Niacin Allergy Unknown Flushing Uncoded 03/16/20 10:03 Physical Examination Vital Signs Vital signs: Temp Pulse Resp BP Pulse Ox 99.2 F H 65 19 137/72 98 04/21/20 13:50 04/21/20 14:01 04/21/20 13:50 04/21/20 14:01 04/21/20 14:01 General physical appearance General physical exam: well developed, well nourished, no distress and no pain Eyes Eye exam: PERRL, normal ocular movement and pale ENT ENT exam: decreased hearing Head Head exam IM: Present atraumatic, normal inspection and normocephalic Neck Neck exam: no masses, no bruits, trachea midline, no lymphadenopathy and no venous distension Cardiovascular Cardiovascular exam IM: Present normal rate and rhythm, RRR, +S1 and +S2; Absent JVD Respiratory Respiratory exam: normal expansion, normal respiratory effort, clear to percussion and clear to auscultation Abdomen Abdomen: Present soft and tender (epigastric tenderness) Hernia: Present epigastric Integumentary Integumentary: Present no rash, no growths and no abnormal pigmentation Neurologic Neurologic: Present normal coordination and normal sensation Musculoskeletal Musculoskeletal: Present normal gait, normal posture and other Psychiatric Psychiatric: Present oriented to time, oriented to person, oriented to place, speech is normal and memory intact Results Labs Result diagrams: 04/21/20 07:56 04/21/20 04:00 Labs: Abnormal lab results 04/20/20 04/20/20 04/20/20 Range/Units 18:43 18:43 18:43 RBC 2.28 L (3.59-5.38) M/mcL Hgb 7.1 L (11.2-15.7) g/dL Hct 22.0 L (34.1-44.9) % POC Hct 21.0 L* (36.0-48.0) % RDW (11.5-14.5) % RBC Morphology (NORMAL) Anisocytosis (NONE SEEN) Macrocytosis (NONE SEEN) Ovalocytes (NONE SEEN) POC BUN 32 H (8-23) mg/dl BUN 35 H (8-23) mg/dl Creatinine (0.6-1.1) mg/dl Glucose 109 H (70-105) mg/dL POC Glucose 107 H (70-105) mg/dL Calcium (8.6-10.4) mg/dl Total Protein (5.9-8.4) gm/dL Globulin 2.1 L (2.2-3.7) gm/dL 04/21/20 04/21/20 04/21/20 Range/Units 00:10 04:00 04:00 RBC 2.70 L (3.59-5.38) M/mcL Hgb 6.8 L* 8.3 L (11.2-15.7) g/dL Hct 25.7 L (34.1-44.9) % POC Hct (36.0-48.0) % RDW 16.7 H (11.5-14.5) % RBC Morphology Abnorm A (NORMAL) Anisocytosis 1+ A (NONE SEEN) Macrocytosis Few A (NONE SEEN) Ovalocytes Occ A (NONE SEEN) POC BUN (8-23) mg/dl BUN (8-23) mg/dl Creatinine 0.5 L (0.6-1.1) mg/dl Glucose (70-105) mg/dL POC Glucose (70-105) mg/dL Calcium 8.2 L (8.6-10.4) mg/dl Total Protein 4.9 L (5.9-8.4) gm/dL Globulin 1.7 L (2.2-3.7) gm/dL 04/21/20 Range/Units 07:56 RBC (3.59-5.38) M/mcL Hgb 8.4 L (11.2-15.7) g/dL Hct (34.1-44.9) % POC Hct (36.0-48.0) % RDW (11.5-14.5) % RBC Morphology (NORMAL) Anisocytosis (NONE SEEN) Macrocytosis (NONE SEEN) Ovalocytes (NONE SEEN) POC BUN (8-23) mg/dl BUN (8-23) mg/dl Creatinine (0.6-1.1) mg/dl Glucose (70-105) mg/dL POC Glucose (70-105) mg/dL Calcium (8.6-10.4) mg/dl Total Protein (5.9-8.4) gm/dL Globulin (2.2-3.7) gm/dL Diabetes panel 04/20/20 04/21/20 Range/Units 18:43 04:00 Sodium 133 137 (133-145) mmol/L Potassium 4.0 4.0 (3.3-5.1) mmol/L Chloride 99 106 (96-108) mmol/L Carbon Dioxide 22 22 (22-30) mmol/L BUN 35 H 23 (8-23) mg/dl Creatinine 0.6 0.5 L (0.6-1.1) mg/dl Glucose 109 H 98 (70-105) mg/dL Calcium 9.1 8.2 L (8.6-10.4) mg/dl AST 19 16 (0-37) U/l ALT 15 12 (0-40) U/l Alkaline Phosphatase 73 59 (39-117) U/L Total Protein 5.9 4.9 L (5.9-8.4) gm/dL Albumin 3.8 3.2 (3.2-5.2) gm/dL Triglycerides 109 (<150) mg/dl Calcium panel 04/20/20 04/21/20 Range/Units 18:43 04:00 Calcium 9.1 8.2 L (8.6-10.4) mg/dl Phosphorus 4.1 (2.7-4.5) mg/dL Albumin 3.8 3.2 (3.2-5.2) gm/dL Pituitary panel 04/20/20 04/21/20 Range/Units 18:43 04:00 Sodium 133 137 (133-145) mmol/L Potassium 4.0 4.0 (3.3-5.1) mmol/L Chloride 99 106 (96-108) mmol/L Carbon Dioxide 22 22 (22-30) mmol/L BUN 35 H 23 (8-23) mg/dl Creatinine 0.6 0.5 L (0.6-1.1) mg/dl Glucose 109 H 98 (70-105) mg/dL Calcium 9.1 8.2 L (8.6-10.4) mg/dl Adrenal panel 04/20/20 04/21/20 Range/Units 18:43 04:00 Sodium 133 137 (133-145) mmol/L Potassium 4.0 4.0 (3.3-5.1) mmol/L Chloride 99 106 (96-108) mmol/L Carbon Dioxide 22 22 (22-30) mmol/L BUN 35 H 23 (8-23) mg/dl Creatinine 0.6 0.5 L (0.6-1.1) mg/dl Glucose 109 H 98 (70-105) mg/dL Calcium 9.1 8.2 L (8.6-10.4) mg/dl Total Bilirubin 0.3 0.9 (0.0-1.0) mg/dL AST 19 16 (0-37) U/l ALT 15 12 (0-40) U/l Alkaline Phosphatase 73 59 (39-117) U/L Total Protein 5.9 4.9 L (5.9-8.4) gm/dL Albumin 3.8 3.2 (3.2-5.2) gm/dL All other labs normal. A/P Assessment and plan (1) Acute GI bleeding: Status: Acute (2) Encounter for long-term (current) use of NSAIDs: Status: Acute (3) Acute blood loss anemia: Status: Acute (4) oysterman current use of immunosuppressive drug: Status: Chronic (5) Stroke: Status: Acute Qualifiers: CVA mechanism: unspecified Qualified Code(s): I63.9 - Cerebral infarction, unspecified (6) Situational anxiety: Status: Acute (7) Urinary incontinence: Status: Chronic Comment: H/O urinary incontinence, mild pelvic prolapse and past H/O microhematuria, also bilateral oophorectomy for cysts 1955. CT evaluation 2008. Review with Shaquille Yang, November 2010--felt not to be a surgical candidate. Qualifiers: Urinary Incontinence type: mixed stress and urge incontinence Qualified Code(s): N39.46 - Mixed incontinence (8) Hearing loss: Status: Chronic Comment: 03/2011 extensive evaluation for questionable temporal arteritis including biopsy through Dr. Weems. Review with Dr. Weems 11/2011 for hearing loss. 03/2012--ENT review, Dr. Licona in [place] for dizziness and probable true vertigo. Carotid doppler through Dr. Licona revealed some plaquing but no obstruction; non-pathologic cervical nodes. New hearing aids 04/2012 Qualifiers: Hearing loss type: sensorineural (9) Degenerative joint disease: Status: Acute Qualifiers: Osteoarthritis location: multiple joints Osteoarthritis type: unspecified Qualified Code(s): M15.9 - Polyosteoarthritis, unspecified (10) Headache: Status: Chronic Comment: H/O tension/migraine-like headaches. Head MRI 03/14/11 revealing some atrophy and possibly some inflammation in the left sphenoid. Rheumatology review 04/01/[address] Hatch in [place] with concerns of temporal arteritis. 03/2011 extensive evaluation for questionable temporal arteritis including biopsy through Dr. Weems. Stable on prn analgesics. Qualifiers: Headache type: tension-type Headache chronicity pattern: chronic headache Intractability: not intractable Qualified Code(s): G44.229 - Chronic tension-type headache, not intractable Narrative A/P Narrative: patient has been started on acid suppressive therapy She will be transfused above hemoglobin of 10. She has been counseled for upper endoscopy which will be performed tomorrow as long as she remains stable. Time Spent With Patient Time: Total time spent is greater than 50% in coordination of care (as documented) at patient's floor/unit and/or counseling patient:
[2020-04-21 17:38] LABS: Hematocrit 32.3 % (34.1-44.9)
[2020-04-21] MEDS: SENNOSIDES/DOCUSATE SODIUM 1 TAB TABLET PO SCH (20:12)
[2020-04-21 21:16] LABS: Hematocrit 33.4 % (34.1-44.9); Hemoglobin 11.4 g/dL (11.2-15.7)
[2020-04-22] MEDS: 0.9 % SODIUM CHLORIDE 1,000 ML IV SCH (02:37)
[2020-04-22] MEDS: 0.9 % SODIUM CHLORIDE 10 ML SYRINGE IV SCH (05:43)
[2020-04-22 06:41] LABS: Hematocrit 32.9 % (34.1-44.9); Hemoglobin 10.9 g/dL (11.2-15.7); Mean Cell Volume 90.6 fL (80.0-100.0); Mean Corpuscular HGB Conc 33.1 g/dL (31.0-36.0); Mean Platelet Volume 8.7 fL (7.4-10.4); Platelet Count 160 K/mcL (140-440); RBC 3.63 M/mcL (3.59-5.38); Red Cell Distribution Width 15.9 % (11.5-14.5); WBC 7.1 K/mcL (4.50-11.00)
[2020-04-22 06:57] LABS: ALT/SGPT 14 U/l (0-40); AST/SGOT 20 U/l (0-37); Albumin 3.5 gm/dL (3.2-5.2); Albumin/Globulin Ratio 1.8 (1.0-2.3); Alkaline Phosphatase 63 U/L (39-117); Bilirubin,Direct < 0.2 mg/dL (0.0-0.3); Bilirubin,Total 0.7 mg/dL (0.0-1.0); Blood Urea Nitrogen 11 mg/dl (8-23); Calcium 8.8 mg/dl (8.6-10.4); Carbon Dioxide 23 mmol/L (22-30); Chloride 105 mmol/L (96-108); Globulin 1.9 gm/dL (2.2-3.7); Glomerular Filtration Rate 88; Glucose 94 mg/dL (70-105); Lactate Dehydrogenase 180 U/L (94-250); Phosphorous 3.3 mg/dL (2.7-4.5); Triglycerides 90 mg/dl (<150); Uric Acid 3.9 mg/dL (2.5-8.0)
[2020-04-22] MEDS: PANTOPRAZOLE 40 MG VIAL IV SCH (07:28)
[2020-04-22] MEDS: MULTIVIT,THER IRON,CA,FA & MIN 1 TABLET PO SCH (09:00)
[2020-04-22] MEDS: DOCUSATE SODIUM 100 MG CAPSULE PO SCH (09:00)
--- NOTE | 2020-04-22 09:32 | Discharge Summary ---
Discharge Provider Provider Patient information: Note initiated : 04/22/20 at 9:31 am Service Date, if different from initiated Date: [] Patient: Kinjal Roque a 84 y/o F admitted on 04/20/20 for Black stools. Discharge diagnosis * UGI Bleed likely secondary to NSAID gastropathy Gastroduodenitis/dual antiplatelet. Clinical cessation of bleeding noted following PPI. Endoscopy with surgery. Continue PPI / carafate for 30 days. Follow-up primary care physician. * Acute blood loss anemia-status post 4 units blood transfusion, hemoglobin 10.9. * H/o CVA - Held plavix/ASA during hospitalization. Resume Plavix in 48 hours. * HTN-continue home dose antihypertensives Brief hospital course Ms. Roque is a 84 year old F with a history of hypertension/recent CVA on aspirin Plavix who presents to the ER with 3-day onset of black tarry stools that started on Saturday. Patient has been on aspirin Plavix since February 09 following a CVA. She denies abdominal discomfort/bloody emesis however endorses to daily NSAID intake over the last 3 weeks after recommendations from sanding machine buffer. She denies history of alcoholism. Initial work-up in the ER was consistent with blood loss anemia with hemoglobin 7.1. 2 blood transfusion was ordered after 80 mg of Protonix was administered. Surgery was consulted and requested hospital service to admit the patient for management of GI bleed. At the time of my evaluation patient is accompanied with her daughter Denisse. She is able to answer most of the questions. She has associated lightheadedness but denies chest pain, diaphoresis, palpitation or shortness of breath. She does feel fatigued. She has very minimal left-sided deficits from recent CVA. She lives alone, her daughter lives a mile from her. She denies fever, double vision, thunderclap headache. 04/21-patient doing well. Hemoglobin down to 8.4. No further bloody bowels. Aspirin Plavix held. Will undergo upper endoscopy in 24 hours. Currently on clear liquid diet. Continue PPI. Denies lightheadedness dizziness chest pain or shortness of breath. 04/22-patient discharging advised to continue PPI twice daily for 30 days. Follow-up with primary care physician. Return to ER if tarry stools/lightheadedness dizziness noted. Status post upper endoscopy. Refer to endoscopy note for details. Date of admission: 04/20/20 21:46 Discharge date: 04/22/20 Primary care physician: Lalo Ramirez M.D., F.A.A.F.P. Consults: 04/20/20 20:54 Consult to Physician [CONS] Stat Comment: Consulting Provider: Humble Torres Reason For Exam: Physician to Consult 04/20/20 20:55 Consult to Physician [CONS] Stat Comment: Consulting Provider: Elijah Ozuna Reason For Exam: Physician to Consult Discharge Meds Discharge Medications Home Medications cholecalciferol (vitamin D3) 10 mcg (400 unit) capsule 1,200 unit PO QDAY cap 03/16/15 [History Confirmed 04/20/20 Last Taken Unknown] telmisartan 40 mg tablet See Rx Instructions .ROUTE .COMPLEX #30 unknown measurement unit code: tablet 12/31/19 [Rx Confirmed 04/20/20 Last Taken Unknown] atorvastatin 20 mg tablet 20 mg PO QDAY #30 tab 02/17/20 [Rx Confirmed 04/20/20 Last Taken Unknown] clopidogrel 75 mg tablet 150 mg PO QDAY 21 Days #42 tab 02/18/20 [Rx Confirmed 04/20/20 Last Taken Unknown] pantoprazole [Protonix] 40 mg PO QDAY 42 Days #42 tab 04/22/20 [Rx Last Taken Unknown] sucralfate [Carafate] 10 ml PO BID 42 Days #840 ml 04/22/20 [Rx Last Taken Unknown] COURSE Hospital Course Hospital course: . Discharge diagnosis: . Time Spent with Patient Time attestation: Total time spent providing and/or coordinating discharge services: EXAM Constitutional Vitals: Temp Pulse Resp BP Pulse Ox 97.7 F 60 16 155/91 100 04/22/20 07:33 04/22/20 08:02 04/22/20 08:02 04/22/20 08:02 04/22/20 08:02 Discharge Data Data Completed and Pending Labs on day of discharge: Labs from last 24 hours 04/22/20 04/22/20 04/21/20 05:40 05:40 20:30 WBC 7.1 RBC 3.63 Hgb 10.9 L 11.4 Hct 32.9 L 33.4 L MCV 90.6 MCH 30.0 MCHC 33.1 RDW 15.9 H Plt Count 160 MPV 8.7 Total Counted Pending Band Neutrophils % Not Reportable Platelet Estimate Pending RBC Morphology Pending Sodium 138 Potassium 3.8 Chloride 105 Carbon Dioxide 23 Anion Gap 10.0 BUN 11 Creatinine 0.5 L GFR Calculation 88 Glucose 94 Uric Acid 3.9 Calcium 8.8 Phosphorus 3.3 Magnesium 2.1 Total Bilirubin 0.7 Direct Bilirubin < 0.2 GGT 20 AST 20 ALT 14 Alkaline Phosphatase 63 Lactate Dehydrogenase 180 Total Protein 5.4 L Albumin 3.5 Globulin 1.9 L Albumin/Globulin Ratio 1.8 Triglycerides 90 SARS-CoV-2 (PCR) 04/21/20 04/21/20 04/21/20 19:18 16:34 07:56 WBC RBC Hgb 11.0 L 8.4 L Hct 32.3 L MCV MCH MCHC RDW Plt Count MPV Total Counted Band Neutrophils % Platelet Estimate RBC Morphology Sodium Potassium Chloride Carbon Dioxide Anion Gap BUN Creatinine GFR Calculation Glucose Uric Acid Calcium Phosphorus Magnesium Total Bilirubin Direct Bilirubin GGT AST ALT Alkaline Phosphatase Lactate Dehydrogenase Total Protein Albumin Globulin Albumin/Globulin Ratio Triglycerides SARS-CoV-2 (PCR) Covid-19 negative Discharge Plan Patient/Caregiver Discharge Instructions Activity: ambulate only with your walker Diet: Regular Diet Instructions: Aspirin (By mouth), Clopidogrel (By mouth), Pantoprazole (By mouth), Rectal Bleeding (GEN), Anemia (GEN), Upper Endoscopy (GEN) Activity Restrictions/Additional Instructions: Continue Carafate and Protonix twice daily for 6 weeks Avoid Ibuprofen, Aleve/meloxicam (NSAIDs) Return to ER if weakness lightheadedness dizziness or tarry stools Advance diet as tolerated Follow-up PCP in 5 to 7 days Restart Plavix in 48 hours--See your scheduled appointment This discharge packet is provided to you to help keep you informed about your care. We want to ensure you get everything you need when you go home. You will also be receiving a call from us in a few days to follow up with you and see how you are doing since your discharge. This gives us a chance to listen to any concerns you maybe experiencing since you were discharged or any additional needs you may have, as well as providing us feedback on your care experience. We strive to always provide excellent care and thank you for your feedback and for choosing [facility]. Prescriptions: New sucralfate [Carafate] 100 mg/mL suspension 10 ml PO BID 42 Days Qty: 840 RF: 0 pantoprazole [Protonix] 40 mg tablet,delayed release (DR/EC) 40 mg PO QDAY 42 Days Qty: 42 RF: 0 Continued telmisartan 40 mg tablet See Rx Instructions .ROUTE .COMPLEX Qty: 30 RF: 6 clopidogrel [Plavix] 75 mg tablet 150 mg PO QDAY 21 Days Qty: 42 RF: 10 cholecalciferol (vitamin D3) 400 unit capsule 1,200 unit PO QDAY RF: 0 atorvastatin 20 mg tablet 20 mg PO QDAY Qty: 30 RF: 8 Discontinued meloxicam 15 mg tablet 15 mg PO QDAY PRN (Reason: pain) Qty: 90 RF: 3 aspirin 325 mg tablet 81 mg PO QDAY RF: 0 Follow Up Plan Follow up with: Lalo Ramirez MD, [facility] [Primary Care Provider] - 05/09/20 2:15 pm Humble Torres MD [Physician] - 04/28/20 1:15 pm (The office will contact you before this appointment to see how you are doing.) Patient Disposition: Home, Self-Care Prognosis: Fair Rehab Potential: Fair I certify that the patient requires SNF services: No Overall status at discharge: patient is progressing back to baseline Discharge Orders: Discharge Order (Routine); Ordered 04/22/20 Ordered By: Elijah Ozuna
[2020-04-22] MEDS ORDERED: LIDOCAINE HCL/PF 100 MG/5 ML SYRINGE IV ONE (09:50)
[2020-04-22] MEDS ORDERED: SUCCINYLCHOLINE 20 MG/ML ML IV ONE (09:50)
[2020-04-22] MEDS ORDERED: KETAMINE 100 MG/ML ML ONE (09:50)
[2020-04-22] MEDS ORDERED: PROPOFOL 200 MG/20 ML VIAL IV ONE (09:50)
[2020-04-22] MEDS ORDERED: ONDANSETRON 4 MG/2 ML VIAL ONE (09:50)
[2020-04-22] MEDS ORDERED: DEXAMETHASONE 10 MG/ML VIAL ONE (09:50)
[2020-04-22 09:53] LABS: Lymphocytes % 25 % (15-49); Monocytes % (Manual) 6 % (1-12); Platelet Estimate NORMAL (NORMAL); RBC Morphology NORMAL (NORMAL); Segmented Neutrophils % 69 % (38-78)
--- NOTE | 2020-04-22 10:17 | Brief Operative Note ---
Brief Operative Note Date of procedure: 04/22/20 Pre-op diagnosis: UPPER G I BLEEDING;MELENA; ANEMIA Post-op diagnosis: other (ACUTE GASTRODUODENITIS WITH PREPYLORIC ULCER ; NO BLEEDING) Procedure: ESOPHAGOGASTRODUODENITIS Grafts/Implants: No Anesthesia: GETA Findings: DIFFUSE INFLAMMATION OF DISTAL STOMACH AND DUODENAL BULB; HEALING ULCER CRATER OF PREPYLORIC ANTRUM Complications: none Surgeon: Humble Torres Specimens Removed/Pathology: none sent Condition: stable Disposition: PACU
[2020-04-22] MEDS ORDERED: POTASSIUM CHLORIDE 20 MEQ PACKET PO PRN (11:03)
[2020-04-22] MEDS ORDERED: ACETAMINOPHEN 325 MG TABLET PO PRN (11:03)
[2020-04-22] MEDS ORDERED: POLYETHYLENE GLYCOL 3350 17 GM PACKET PO PRN (11:03)
[2020-04-22] MEDS ORDERED: 0.9 % SODIUM CHLORIDE 1,000 ML IV SCH (11:03)
[2020-04-22] MEDS ORDERED: MELATONIN 3 MG TABLET PO PRN (11:03)
[2020-04-22] MEDS ORDERED: MAGNESIUM SULFATE 2 GM/50 ML BAG IV PRN (11:03)
[2020-04-22] MEDS ORDERED: ACETAMINOPHEN 650 MG/65 ML BOTTLE IV PRN (11:03)
[2020-04-22] MEDS ORDERED: ONDANSETRON 4 MG/2 ML VIAL IV PRN (11:03)
[2020-04-22] MEDS ORDERED: ONDANSETRON 4 MG ODT TABLET SL PRN (11:03)
[2020-04-22] MEDS ORDERED: BISACODYL 10 MG SUPP.RECT PR PRN (11:03)
[2020-04-22] MEDS ORDERED: 0.9 % SODIUM CHLORIDE 10 ML SYRINGE IV SCH (14:00)
[2020-04-22] MEDS ORDERED: PANTOPRAZOLE 40 MG VIAL IV SCH (17:00)
[2020-04-22] MEDS ORDERED: SENNOSIDES/DOCUSATE SODIUM 1 TAB TABLET PO SCH (21:00)
[2020-04-22] MEDS ORDERED: DOCUSATE SODIUM 100 MG CAPSULE PO SCH (21:00)
[2020-04-23] MEDS ORDERED: LOSARTAN 50 MG TABLET PO SCH (09:00)
[2020-04-23] MEDS ORDERED: ATORVASTATIN 20 MG TABLET PO SCH (09:00)
[2020-04-23] MEDS ORDERED: MULTIVIT,THER IRON,CA,FA & MIN 1 TABLET PO SCH (09:00)
[2020-04-23] MEDS ORDERED: VITAMIN D3 1,000 UNIT TABLET PO SCH (09:00)
--- NOTE | 2020-04-26 07:59 | Operative Note ---
DATE OF OPERATION: 04/22/2020 PREOPERATIVE DIAGNOSIS: Upper GI bleeding, melena and anemia. POSTOPERATIVE DIAGNOSIS: Acute gastroduodenitis with a prepyloric ulcer. No bleeding. PROCEDURE: Esophagogastroduodenoscopy. SURGEON: Humble Torres M.D. FINDINGS: Diffuse inflammation of distal stomach and duodenal bulb healing ulcer crater in the prepyloric antrum, without evidence of bleeding. DESCRIPTION OF PROCEDURE: Under general anesthesia, the patient was turned to the left lateral decubitus position. She was intubated because of her history of upper GI bleeding. A bite block was placed. Scope was introduced through the bite block into the retropharynx and esophagus. The esophagus was normal down to the GE junction. There was no inflammation. There was a small hiatal hernia. There was mild inflammation of the gastric body and antrum with more intense inflammation in the antrum. There was a 2 cm ulcer crater with heaped edges and a fibrinous base in the prepyloric antrum. The base was totally closed with fibrinous exudate. There was no evidence of bleeding. Pylorus was mildly swollen, but there was no channel ulcer. There was mild inflammation of the duodenal bulb, but no ulceration or erosion. Second and third portions of the duodenum were normal. There was no blood in the duodenum. Scope was pulled back and retroflexed view was done. The aforementioned inflammation was noted. Because of the surrounding inflammation, the ulcer was not biopsied. It had all appearances of an acute inflammatory lesion. Air was suctioned from the stomach and the scope was withdrawn. The patient tolerated the procedure well. She was awakened, extubated, and transferred to the postanesthetic care unit in satisfactory condition. LCS:matt Job ID: [id number] Doc ID: [id number] Humble Torres M.D.
== END 2020-04-22 14:55 | disposition home or self-care (01) | DRG 378 ==
LOC: ICU 18:25 → ED 18:25 → OBSVTOIN 21:46 → ICU 21:49
PROVIDERS: ADMIT Internal Medicine; ATTEND Internal Medicine